=== PATIENT | female | born 1970 | race Two or more races ===

== ENCOUNTER → 2025-03-15 | Outpatient (CLI) | payer BC, SELFPAY ==
[2025-03-15 08:41] LABS: Cardiac Risk Estimate 2.9 RATIO (3.7-5.6); Cholesterol 164 mg/dL (132-200); HDL Cholesterol 57 mg/dL (40-60); LDL Cholesterol,Calculated 54 mg/dL (0-130); Triglycerides 267 mg/dL (30-150)
[2025-03-15 08:51] LABS: Folate > 24.00 ng/mL (>5.38); Vitamin B12 772 pg/mL (211-911); Vitamin D 25 Hydroxy Total 35.3 ng/mL (7.3-40.2)
== END | disposition home or self-care (01) ==
LOC: COPL 06:56
PROVIDERS: PCP Internal Medicine
DX: D50.9 Iron deficiency anemia, unspecified (principal); E55.9 Vitamin D deficiency, unspecified; E78.5 Hyperlipidemia, unspecified; R53.83 Other fatigue; E11.69 Type 2 diabetes mellitus with other specified complication
CPT/HCPCS: 36415; 80061; 82306; 82607; 82746